=== PATIENT | male | born 1955 | race Caucasian/White ===

== ENCOUNTER → 2020-01-28 | Outpatient (CLI) | payer BC, MEDICARE ==
--- NOTE | 2020-01-28 08:57 | CT ---
EXAMINATION TYPE: CT facial bones wo con DATE OF EXAM: 01/28/2020 COMPARISON: None HISTORY: 65-year-old male R22.0, Mass/lump on head/left side of neck TECHNIQUE: Contiguous axial scanning of the facial bones without IV contrast. Coronal reconstructions performed. CT DLP: 630.70 mGycm Automated exposure control for dose reduction was used. FINDINGS: Large partially necrotic left station 2A lymph node, measuring 3.6 x 3.5 x 2.9 cm, has mass effect on to adjacent structures. Along posterior margin of the mass, there is subtle loss of the intervening flat plane with the sternocleidomastoid, axial image 20. Some asymmetrically larger lymph nodes are scattered throughout the left side of the neck though cons iderably smaller in size measuring up to 1 cm. The submandibular and parotid glands appear satisfactory. There is asymmetric soft tissue prominence along the left palatoglossal arch. Moderate mucosal thickening scattered throughout the sphenoid sinuses, ethmoid air cells, and floors of the maxillary sinuses. Mastoid air cells well pneumatized. IMPRESSION: 1. Partially necrotic 3.6 cm left station 2A lymph node. Possible early extranodal extension posterio rly with loss of the fat plane with the adjacent sternocleidomastoid. 2. Asymmetric soft tissue enlargement along the left tonsillar pillar. Correlate for potential primar y site of neoplasm here.
== END | disposition home or self-care (01) ==
LOC: RADCTMAIN 07:10
PROVIDERS: ATTEND Family Medicine
DX: J35.1 Hypertrophy of tonsils (principal); R22.0 Localized swelling, mass and lump, head
CPT/HCPCS: 70486